=== PATIENT | female | born 1965 | race Two or more races ===

== ENCOUNTER 2020-12-08 10:39 | Emergency (ER) | payer SELFPAY ==
[~2020-12-08] VITALS: Ht 152.4 cm; Wt 72.7 kg
[2020-12-08] MEDS ORDERED: fentaNYL PF VIAL 100 MCG/2 ML VIAL IV ONE (11:45)
[2020-12-08] MEDS ORDERED: ONDANSETRON PF 4 MG/2 ML VIAL. IV ONE (11:45)
[2020-12-08] MEDS ORDERED: IV NORMAL SALINE 1000ML BAG 1,000 ML IV ONE (11:45)
[2020-12-08 11:47] LABS: BASO # 0.1 x10^3/uL (0.0-0.2); BASO % 1 % (0-3); EOS # 0.1 x10^3/uL (0.0-0.7); EOS % 2 % (0-3); HEMATOCRIT 36.1 % (36.0-47.0); LYMPH # 1.2 x10^3/uL (1.0-4.8); LYMPH % 13 % (24-48); MEAN CORPUSCULAR HEMOGLOBIN 28 pg (25-35); MEAN CORPUSCULAR HGB CONC 33 g/dL (31-37); MEAN CORPUSCULAR VOLUME 84 fL (79-100); MONO # 0.6 x10^3/uL (0.0-1.1); MONO % 6 % (0-9); NEUT # 7.1 x10^3/uL (1.8-7.7); NEUT % 79 % (31-73); PLATELET COUNT 240 x10^3/uL (140-400); RED CELL DISTRIBUTION WIDTH 13.8 % (11.5-14.5); WHITE BLOOD COUNT 9.1 x10^3/uL (4.0-11.0)
[2020-12-08 11:58] LABS: CALCIUM 8.6 mg/dL (8.5-10.1); CREATININE 0.9 mg/dL (0.6-1.0); GFR 65.2
[2020-12-08 12:04] LABS: ALBUMIN 3.7 g/dL (3.4-5.0); ALBUMIN/GLOBULIN RATIO 1.2 (1.0-1.7); MAGNESIUM 2.2 mg/dL (1.8-2.4); TOTAL BILIRUBIN 0.3 mg/dL (0.2-1.0); TOTAL PROTEIN 6.8 g/dL (6.4-8.2)
--- NOTE | 2020-12-08 12:26 | RAD ---
EXAM: AP View of the chest DATE: 12/08/2020 11:41 AM INDICATION: chest pain COMPARISON: No Prior FINDINGS: The heart is not enlarged. Mediastinal and hilar contours are normal. Nodular patchy opacity left lung base. No pleural effusion or pneumothorax. IMPRESSION: Nodular patchy opacity left lung base. Recommend radiographic follow-up to resolution or further eval uation with nonemergent CT. Electronically signed by: Evan Cross MD (12/08/2020 12:23 PM) BRITANY
--- NOTE | 2020-12-08 12:27 | RAD ---
EXAM: 3 views of the left ankle DATE: 12/08/2020 11:41 AM INDICATION: Reason: chest pain / Spl. Instructions: / History: COMPARISON: No Prior FINDINGS: No acute fracture or dislocation. Ankle mortise is congruent. Talar dome is intact. Joint spaces are preserved without significant degenerative/proliferative change. No significant soft tissue swelling. IMPRESSION: No acute fracture or dislocation. Electronically signed by: Evan Cross MD (12/08/2020 12:25 PM) BRITANY
--- NOTE | 2020-12-08 12:30 | RAD ---
EXAM: AP pelvis, AP and lateral views left hip DATE: 12/08/2020 11:41 AM INDICATION: Reason: L hip and left heel pain after syncopal episode with fall / Spl. Instructions: / History: . COMPARISON: No Prior FINDINGS: No acute fracture or dislocation is seen. Hip joint spaces are preserved. No pubic symphysis or SI pineda int diastases. IUD is seen within the pelvis. Moderate colonic stool content. IMPRESSION: 1. No acute fracture or dislocation. Electronically signed by: Evan Cross MD (12/08/2020 12:28 PM) BRITANY
--- NOTE | 2020-12-08 12:35 | RAD ---
EXAM: CT HEAD WITHOUT IV CONTRAST CLINICAL HISTORY: Reason: syncopal episode / Spl. Instructions: / History: COMPARISON: None. TECHNIQUE: Routine CT of the head without contrast. Soft tissues and bone windows were reviewed. PQRS compliance statement - One or more of the following individualized dose reduction techniques wer e utilized for this study: 1. Automated exposure control 2. Adjustment of the mA and/or kV according to patient size 3. Use of iterative reconstruction technique FINDINGS: There is no evidence of hemorrhage, mass or extra-axial fluid collection. Alvarado-white differentiation is maintained with no evidence of edema. There is no mass effect or shift of the intracranial structures. The ventricles, basilar cisterns and cortical sulci are normal in size and configuration for the gatito ents stated age. The cerebellum and brainstem are unremarkable. The calvarium demonstrates no evidence of fracture or focal lesion. There is normal aeration of the visualized paranasal sinuses and mastoid air cells. The visualized portions of the orbits are normal. IMPRESSION: No evidence for acute intracranial process. EXAM: CT CERVICAL SPINE WITHOUT IV CONTRAST CLINICAL HISTORY: Reason: syncopal episode / Spl. Instructions: / History: COMPARISON: None available. TECHNIQUE: Helical CT of the cervical spine was performed. Axial, coronal and sagittal reformatted im ages were also performed. PQRS compliance statement - One or more of the following individualized dose reduction techniques wer e utilized for this study: 1. Automated exposure control 2. Adjustment of the mA and/or kV according to patient size 3. Use of iterative reconstruction technique FINDINGS: Vertebral body heights are preserved. Mild C5-6, C6-7 disc height loss. Small posterior disc osteophy te complex used C5-6 and C6-7. No acute fracture. No spondylolisthesis. IMPRESSION: 1. Negative acute fracture or subluxation. 2. Degenerative changes most prominent at C5-6 and C6-7. Electronically signed by: Evan Cross MD (12/08/2020 12:33 PM) BRITANY
--- NOTE | 2020-12-08 13:04 | RAD ---
CT LUMBAR SPINE WO History:Reason: syncopal episode / Spl. Instructions: / History: Technique: Noncontrast CT was performed of the lumbar spine. Multiplanar reconstructions were perform ed. Exposure: One or more of the following individualized dose reduction techniques were utilized for thi s examination: 1. Automated exposure control 2. Adjustment of the mA and/or kV according to patient size 3. Use of iterative reconstruction technique. Comparison: None Findings: Transitional lumbosacral anatomy with lumbarization of S1. Vestigial ribs at left L1 aspect. Mild lef tward curvature of the lumbar spine. Normal vertebral body height. No fracture. IUD appears to be within the fundal aspect of the uterus with limited extending through the anterior aspect. T12-L1: No canal or neuroforaminal narrowing. L1-L2: No canal or neuroforaminal narrowing. L2-L3: Small disc bulge. Subarticular recess narrowing. No canal narrowing. Facet arthropathy. Mild right neuroforaminal narrowing. L3-L4: Small disc bulge. Subarticular recess narrowing. No canal narrowing. Mild facet arthropathy. Mild right neuroforaminal narrowing. L4-L5: Broad-based disc bulge. Mild canal narrowing. Subarticular recess narrowing. Moderate facet a rthropathy. Mild bilateral neuroforaminal narrowing, left greater than right. L5-S1: Disc bulge. Moderate facet arthropathy. No canal narrowing. Subarticular recess narrowing. Mo derate left and mild right neuroforaminal narrowing. Impression: 1. No acute fracture or subluxation of the lumbar spine. 2. Transitional lumbosacral anatomy. Multilevel lumbar spondylosis most prominent L4-5 and L5-S1. 3. Mild canal narrowing L4-5. 4. Neuroforaminal narrowing most prominent left L5-S1. 5. IUD within the uterine fundus with limbs extending through the anterior aspect of the uterus. Electronically signed by: Vinod Rubio DO (12/08/2020 1:01 PM) [id number]
--- NOTE | 2020-12-08 13:31 | ED.ADGEN ---
Past Medical History Past Medical History: No Pertinent History Past Surgical History: Appendectomy, Smoking Status: Never Smoker Alcohol Use: None General Adult EDM: Chief Complaint: MECHANICAL FALL HPI: HPI: Patient is a 55 year old , non-Yakut speaking, woman who presents to the emergency department via EMS for evaluation after a fall today at work. 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 She complains of a headache, left hip, low back, neck, and left heel pain. Patient denies any vision changes, dizziness, chest pain, shortness of breath, nausea, vomiting, diarrhea, or abdominal pain at this time. She currently denies any palpitations. She rates her pain a 10 out of 10 on the pain scale, she denies any alleviating factors the pain is worse with palpation and movement. The [employer] medical interpreter line was used to speak with the patient as she was Greek-speaking only. Review of Systems: Review of Systems: Complete ROS is negative unless otherwise noted in HPI. Current Medications: Current Medications Medications (Trade) Dose Ordered Sig/Katie Start Time Stop Time Status Last Admin Dose Admin Fentanyl Citrate (Fentanyl 2ml Vial) 50 mcg 1X ONCE 12/08/20 11:45 12/08/20 11:46 DC 12/08/20 12:09 50 MCG Ondansetron HCl (Zofran) 4 mg 1X ONCE 12/08/20 11:45 12/08/20 11:46 DC 12/08/20 12:08 4 MG Sodium Chloride 1,000 ml @ 1,000 mls/hr 1X ONCE 12/08/20 11:45 12/08/20 12:44 DC 12/08/20 12:08 1,000 MLS/HR Allergies: Allergies: Allergies Coded Allergies Type Severity Reaction Last Updated Verified No Known Drug Allergies 12/08/20 No Physical Exam: PE: See Above Constitutional: Well developed, well nourished, no acute distress, non-toxic appearance. [] HENT: Normocephalic, atraumatic, bilateral external ears normal, bilateral TMs nose normal. [] Eyes: PERRLA, EOMI, conjunctiva normal, no discharge. [] Neck: Normal range of motion, nontender, supple, no stridor. [] Cardiovascular:Heart rate regular rhythm, no murmur Lungs & Thorax: Respirations even and unlabored, no retractions, no respiratory distress, lungs CTA Abdomen: soft, no tenderness, no palpable mass, no pulsatile mass Skin: Warm, dry, no erythema, no rash. [] Extremities: LLE: L hip TTP without crepitus or obvious deformity, external rotation noted, 2+ pedal and posterior tibial pulses, no cyanosis, ROM limited due to pain, no edema L heel: TTP posteriorly without crepitus or obvious deformity, sensation intact, no edema, no cyanosis Neurologic: Alert and oriented X 3, no focal deficits noted. [] Psychologic: Affect normal, judgement normal, mood normal. [] Current Patient Data: Labs: Laboratory Tests Test 12/08/20 11:24 12/08/20 13:54 12/08/20 14:35 White Blood Count 9.1 x10^3/uL (4.0-11.0) Red Blood Count 4.30 x10^6/uL (3.50-5.40) Hemoglobin 12.0 g/dL (12.0-15.5) Hematocrit 36.1 % (36.0-47.0) Mean Corpuscular Volume 84 fL (79-100) Mean Corpuscular Hemoglobin 28 pg (25-35) Mean Corpuscular Hemoglobin Concent 33 g/dL (31-37) Red Cell Distribution Width 13.8 % (11.5-14.5) Platelet Count 240 x10^3/uL (140-400) Neutrophils (%) (Auto) 79 % (31-73) H Lymphocytes (%) (Auto) 13 % (24-48) L Monocytes (%) (Auto) 6 % (0-9) Eosinophils (%) (Auto) 2 % (0-3) Basophils (%) (Auto) 1 % (0-3) Neutrophils # (Auto) 7.1 x10^3/uL (1.8-7.7) Lymphocytes # (Auto) 1.2 x10^3/uL (1.0-4.8) Monocytes # (Auto) 0.6 x10^3/uL (0.0-1.1) Eosinophils # (Auto) 0.1 x10^3/uL (0.0-0.7) Basophils # (Auto) 0.1 x10^3/uL (0.0-0.2) Sodium Level 141 mmol/L (136-145) Potassium Level 4.0 mmol/L (3.5-5.1) Chloride Level 105 mmol/L (98-107) Carbon Dioxide Level 26 mmol/L (21-32) Anion Gap 10 (6-14) Blood Urea Nitrogen 20 mg/dL (7-20) Creatinine 0.9 mg/dL (0.6-1.0) Estimated GFR (Cockcroft-Gault) 65.2 BUN/Creatinine Ratio 22 (6-20) H Glucose Level 111 mg/dL (70-99) H Calcium Level 8.6 mg/dL (8.5-10.1) Magnesium Level 2.2 mg/dL (1.8-2.4) Total Bilirubin 0.3 mg/dL (0.2-1.0) Aspartate Amino Transferase (AST) 24 U/L (15-37) Alanine Aminotransferase (ALT) 22 U/L (14-59) Alkaline Phosphatase 86 U/L (46-116) Creatine Kinase 208 U/L (26-192) H Creatine Kinase MB (Mass) 2.4 ng/mL (0.0-3.6) Creatine Kinase MB Relative Index 1.2 % (0-4) Troponin I Quantitative < 0.017 ng/mL (0.000-0.055) < 0.017 ng/mL (0.000-0.055) Total Protein 6.8 g/dL (6.4-8.2) Albumin 3.7 g/dL (3.4-5.0) Albumin/Globulin Ratio 1.2 (1.0-1.7) Lipase 108 U/L (73-393) Urine Collection Type Unknown Urine Color Yellow Urine Clarity Clear Urine pH 7.0 (<5.0-8.0) Urine Specific [place] 1.010 (1.000-1.030) Urine Protein Negative mg/dL (NEG-TRACE) Urine Glucose (UA) Negative mg/dL (NEG) Urine Ketones (Stick) Trace mg/dL (NEG) Urine Blood Trace (NEG) Urine Nitrite Negative (NEG) Urine Bilirubin Negative (NEG) Urine Urobilinogen Dipstick 0.2 mg/dL (0.2 mg/dL) Urine Leukocyte Esterase Small (NEG) Urine RBC 3-5 /HPF (0-2) Urine WBC 1-4 /HPF (0-4) Urine Squamous Epithelial Cells Few /LPF Urine Transitional Epithelial Cells Few /LPF Urine Renal Epithelial Cells Occ /LPF Urine Bacteria 0 /HPF (0-FEW) Urine Mucus Slight /LPF Laboratory Tests 12/08/20 11:24 Laboratory Tests 12/08/20 11:24 Vital Signs: Vital Signs Date Time Temp Pulse Resp B/P (MAP) Pulse Ox O2 Delivery O2 Flow Rate FiO2 12/08/20 14:34 64 19 107/59 (75) 98 Room Air 12/08/20 10:39 98.2 98.2 EKG: EK-sinus rhythm, rate 63, no STEMI, read by [] Heart Score: C/O Chest Pain: No Risk Scores: Score 0 - 3: 2.5% MACE over next 6 weeks - Discharge Home Score 4 - 6: 20.3% MACE over next 6 weeks - Admit for Clinical Observation Score 7 - 10: 72.7% MACE over next 6 weeks - Early Invasive Strategies Radiology/Procedures: Radiology/Procedures: PROCEDURE: CT HEAD AND CERVICAL SPINE WO EXAM: CT HEAD WITHOUT IV CONTRAST CLINICAL HISTORY: Reason: syncopal episode / Spl. Instructions: / History: COMPARISON: None. TECHNIQUE: Routine CT of the head without contrast. Soft tissues and bone windows were reviewed. PQRS compliance statement - One or more of the following individualized dose reduction techniques were utilized for this study: 1. Automated exposure control 2. Adjustment of the mA and/or kV according to patient size 3. Use of iterative reconstruction technique FINDINGS: There is no evidence of hemorrhage, mass or extra-axial fluid collection. Alvarado-white differentiation is maintained with no evidence of edema. There is no mass effect or shift of the intracranial structures. The ventricles, basilar cisterns and cortical sulci are normal in size and configuration for the patients stated age. The cerebellum and brainstem are unremarkable. The calvarium demonstrates no evidence of fracture or focal lesion. There is normal aeration of the visualized paranasal sinuses and mastoid air cells. The visualized portions of the orbits are normal. IMPRESSION: No evidence for acute intracranial process. EXAM: CT CERVICAL SPINE WITHOUT IV CONTRAST CLINICAL HISTORY: Reason: syncopal episode / Spl. Instructions: / History: COMPARISON: None available. TECHNIQUE: Helical CT of the cervical spine was performed. Axial, coronal and sagittal reformatted images were also performed. PQRS compliance statement - One or more of the following individualized dose reduction techniques were utilized for this study: 1. Automated exposure control 2. Adjustment of the mA and/or kV according to patient size 3. Use of iterative reconstruction technique FINDINGS: Vertebral body heights are preserved. Mild C5-6, C6-7 disc height loss. Small posterior disc osteophyte complex used C5-6 and C6-7. No acute fracture. No spondylolisthesis. IMPRESSION: 1. Negative acute fracture or subluxation. 2. Degenerative changes most prominent at C5-6 and C6-7.[] PROCEDURE: CT LUMBAR SPINE WO CONTRAST CT LUMBAR SPINE WO History:Reason: syncopal episode / Spl. Instructions: / History: Technique: Noncontrast CT was performed of the lumbar spine. Multiplanar reconstructions were performed. Exposure: One or more of the following individualized dose reduction techniques were utilized for this examination: 1. Automated exposure control 2. Adjustment of the mA and/or kV according to patient size 3. Use of iterative reconstruction technique. Comparison: None Findings: Transitional lumbosacral anatomy with lumbarization of S1. Vestigial ribs at left L1 aspect. Mild leftward curvature of the lumbar spine. Normal vertebral body height. No fracture. IUD appears to be within the fundal aspect of the uterus with limited extending through the anterior aspect. T12-L1: No canal or neuroforaminal narrowing. L1-L2: No canal or neuroforaminal narrowing. L2-L3: Small disc bulge. Subarticular recess narrowing. No canal narrowing. Facet arthropathy. Mild right neuroforaminal narrowing. L3-L4: Small disc bulge. Subarticular recess narrowing. No canal narrowing. Mild facet arthropathy. Mild right neuroforaminal narrowing. L4-L5: Broad-based disc bulge. Mild canal narrowing. Subarticular recess narrowing. Moderate facet arthropathy. Mild bilateral neuroforaminal narrowing, left greater than right. L5-S1: Disc bulge. Moderate facet arthropathy. No canal narrowing. Subarticular recess narrowing. Moderate left and mild right neuroforaminal narrowing. Impression: 1. No acute fracture or subluxation of the lumbar spine. 2. Transitional lumbosacral anatomy. Multilevel lumbar spondylosis most prominent L4-5 and L5-S1. 3. Mild canal narrowing L4-5. 4. Neuroforaminal narrowing most prominent left L5-S1. 5. IUD within the uterine fundus with limbs extending through the anterior aspect of the uterus. PROCEDURE: CHEST AP ONLY EXAM: AP View of the chest DATE: 12/08/2020 11:41 AM INDICATION: chest pain COMPARISON: No Prior FINDINGS: The heart is not enlarged. Mediastinal and hilar contours are normal. Nodular patchy opacity left lung base. No pleural effusion or pneumothorax. IMPRESSION: Nodular patchy opacity left lung base. Recommend radiographic follow-up to resolution or further evaluation with nonemergent CT. PROCEDURE: ANKLE LEFT 3V EXAM: 3 views of the left ankle DATE: 12/08/2020 11:41 AM INDICATION: Reason: chest pain / Spl. Instructions: / History: COMPARISON: No Prior FINDINGS: No acute fracture or dislocation. Ankle mortise is congruent. Talar dome is intact. Joint spaces are preserved without significant degenerative/proliferative change. No significant soft tissue swelling. IMPRESSION: No acute fracture or dislocation. PROCEDURE: HIP LEFT 2V WITH PELVIS EXAM: AP pelvis, AP and lateral views left hip DATE: 12/08/2020 11:41 AM INDICATION: Reason: L hip and left heel pain after syncopal episode with fall / Spl. Instructions: / History: . COMPARISON: No Prior FINDINGS: No acute fracture or dislocation is seen. Hip joint spaces are preserved. No pubic symphysis or SI joint diastases. IUD is seen within the pelvis. Moderate colonic stool content. IMPRESSION: 1. No acute fracture or dislocation. Course & Med Decision Making: Course & Med Decision Making Pertinent Labs and Imaging studies reviewed. (See chart for details) 55-year-old female presented to the emergency department for evaluation after a fall. X-rays the patient's left ankle, left hip, and pelvis were negative for any acute fractures. CT of the patient's head and neck was negative, CT lumbar spine also negative for any acute findings. Patient was given a liter normal saline, 4 mg Zofran, and 50 mcg of fentanyl in the emergency department. She reported relief of her pain after these medications. CBC is unremarkable; CMP reveals elevated BUN/creatinine ratio 22, glucose of 111, and CK of 208. Troponin initially was less than 0.017, 3-hour repeat troponin was also less than 0.017 UA is unremarkable. Patient is vital signs are stable throughout emergency department stay. Prescription was written for Flexeril. Advised the patient of the negative x- rays and inconclusive lab work. I encouraged her to follow-up with her primary care doctor. Rest for the next 1 to 2 days, apply ice to the sore areas as needed for comfort. Return to the ER if symptoms worsen or fever develops. Discharge instructions and results were given via the [employer] medical interpreter line and were also provided in Yakut and Greek writing. Patient verbalized an understanding of home care, medications, follow-up, and r eturn to ED instructions and was in agreement with the plan of care. [] Sean Disclaimer: Sean Disclaimer: This electronic medical record was generated, in whole or in part, using a voice recognition dictation system. Departure Departure Impression: Primary Impression: Palpitations Additional Impressions: Episode of syncope Fall Pain of left heel Left hip pain Neck pain Head ache Disposition: 01 HOME / SELF CARE / HOMELESS Condition: STABLE Referrals: NO PCP (PCP) Patient Instructions: Head Injury, Adult, [id number], Hip Pain, Palpitations, [id number], Syncope, [id number] Additional Instructions: FIll the prescription and take as directed. You may also take tylenol and ibuprofen as needed for pain. Apply ice to sore areas as needed for comfort. Increase clear fluids and rest. Follow up with your primary care doctor in 1-2 days. Return to the ER if symptoms worsen or fever develops. [facility] [address] [place] [address] [facility] [address] [place] [address] [facility] [address] [place] [address] [facility] [address] [place] [address] [facility] [address] [place] [address] [address] [address] [place] [address] [facility] [address] [place] [address] [employer] [address] [place] [address] [facility] [address] [place] [address] [facility] [address] [place] [address] Scripts Cyclobenzaprine Hcl (CYCLOBENZAPRINE HCL) 10 Mg Tablet 1 TAB PO TID PRN for PAIN for 10 Days, #30 TAB 0 Refills Prov: PREETHI GONSALVES APRN 12/08/20 Attending Signature I have participated in the care of this patient and I have reviewed and agree with all pertinent clinical information above including history, exam, and recommendations. Problem Qualifiers Additional Impressions: Episode of syncope Syncope type: unspecified Qualified Codes: R55 - Syncope and collapse Fall Encounter type: initial encounter Qualified Codes: W19.XXXA - Unspecified fall, initial encounter Head ache Headache type: post-traumatic Headache chronicity pattern: acute headache Intractability: not intractable Qualified Codes: G44.319 - Acute post- traumatic headache, not intractable PREETHI GONSALVES APRN Dec 08, 2020 13:31 HALLEY BAINS DO Dec 08, 2020 17:21
--- NOTE | 2020-12-08 13:59 | EKG ---
[facility] [address] [place] [address] Test Date: 2020-12-08 Test Time: 11:18:34 Pat Name: SHANNAN GANNON Department: Room: Gender: F Systems Project Manager: : 1965 Requested By: PREETHI GONSALVES Order Number: [id number] Reading MD: Measurements Intervals [place] Rate: 63 P: 67 MO: 188 QRS: 62 QRSD: 68 T: 51 QT: 410 QTc: 423 Interpretive Statements SINUS RHYTHM NORMAL ECG RI6.02 No previous ECG available for comparison
[2020-12-08 14:01] LABS: BILIRUBIN,URINE NEGATIVE (NEG); CLARITY,URINE CLEAR; COLOR,URINE YELLOW; NITRITE,URINE NEGATIVE (NEG); PROTEIN,URINE NEGATIVE (NEG-TRACE); UROBILINOGEN,URINE 0.2 mg/dL (0.2 mg/dL)
[2020-12-08 14:14] LABS: BACTERIA,URINE 0 /HPF (0-FEW)
[2020-12-08 14:34] VITALS: BP 107/59
[2020-12-08] MEDS ORDERED: CYCL10TA2 PO (15:18)
== END 2020-12-08 15:41 | disposition home or self-care (01) ==
LOC: ER 10:39
DX: R00.2 Palpitations (principal); R51.9 Headache, unspecified; R55 Syncope and collapse; M25.552 Pain in left hip; M54.2 Cervicalgia; M79.672 Pain in left foot; R07.89 Other chest pain; G89.11 Acute pain due to trauma; W18.39XA Other fall on same level, initial encounter; Y93.89 Activity, other specified; Y92.89 Other specified places as the place of occurrence of the external cause; Y99.8 Other external cause status
CPT/HCPCS: 36415; 70450; 71045; 72125; 72131; 73502; 73610; 80053; 81001; 82553; 83690; 83735; 84484; 85025; 87086; 93005; 96361; 96374; 96375; 99285; J2405; J3010; J7030